=== PATIENT | male | born 1985 | race Caucasian/White ===

== ENCOUNTER 2024-07-23 13:24 | Emergency (ER) | payer BC, SELFPAY ==
[2024-07-23 13:42] VITALS: BP 138/70; PULSE 104; RESP 18; TEMP 36.8; O2SAT 97; BMI 23.0
--- NOTE | 2024-07-23 13:51 | EXP.UTC ---
Discharge Plan Disposition Patient Disposition: Home, Self-Care Condition: Good Prescriptions Prescriptions: New promethazine-DM 6.25-15 mg/5 mL Syrup 5 ml PO Q6H PRN (Reason: Cough) Qty: 240 0RF azithromycin [Zithromax] 250 mg tablet 250 mg PO UD DOSE PK Qty: 6 0RF Rx Instructions: Take two (2) tablets today, then one (1) tablet days #2 thru #5 benzonatate 100 mg capsule 100 mg PO TIDP PRN (Reason: Cough) Qty: 30 0RF methylprednisolone 4 mg Tablets,Dose Pack 4 mg PO DIRECTED 6 Days Qty: 21 0RF Rx Instructions: Take 1 pack as directed for 6 days No Action buspirone 10 mg tablet 10 mg PO DAILY lamotrigine 100 mg tablet 100 mg PO DAILY Patient Comments: TAKE 1 TABLET BY MOUTH TWICE A DAY aripiprazole 2 mg tablet 2 mg PO DAILY clonidine HCl 0.1 mg tablet extended release 12 hr 0.1 mg PO DAILY Patient Comments: TAKE 3 TABLETS BY MOUTH EVERY NIGHT Referrals Follow up/Referrals: Provider,Referral, MD [Primary Care Provider] - See instructions Activity Restrictions/Add. Instructions Additional Instructions/Restrictions: Drink plenty of fluids. Take tylenol or ibuprofen for pain or fever. Take the medications as directed. Follow up with your regular doctor. GO TO THE ER FOR ANY WORSENING SYMPTOMS Clinical Impressions Clinical Impression: Acute bronchitis, Sinusitis Instructions Patient Instructions: Sinusitis, DI for Sinusitis Print Language Print Language: Chinese Discharge ED Provider: Aristeo Lopez [facility] General Stated complaint: congestion, sinus pressure Mode of Arrival: Ambulatory Source of Information: Patient Time Seen by Provider: 07/23/24 13:51 Description of Symptoms (Recalled from Triage Doc. by RN): SINUS INFECTION?, PRESSURE HEENT Symptoms (Recalled from RN notes): Yes Resp Symptoms (Recalled from RN notes): Yes Skin Symptoms (Recalled from RN notes): No MS Symptoms (Recalled from RN notes): No Functional Status (Recalled from RN notes): WNL History of Present Illness Provider Complaint: He states that for the past 2 weeks he has had worsening sinus congestion and a productive cough. He denies any fever/chills. Related Data Home Medications ?Medication ?Instructions ?Recorded ?Confirmed aripiprazole 2 mg tablet 2 mg PO DAILY 07/23/24 07/23/24 buspirone 10 mg tablet 10 mg PO DAILY 07/23/24 07/23/24 clonidine HCl 0.1 mg 0.1 mg PO DAILY 07/23/24 07/23/24 tablet,extended release,12 hr lamotrigine 100 mg tablet 100 mg PO DAILY 07/23/24 07/23/24 Previous Rx's ?Medication ?Instructions ?Recorded azithromycin 250 mg tablet 250 mg PO UD DOSE PK #6 tabs 07/23/24 (Zithromax) benzonatate 100 mg capsule 100 mg PO TIDP PRN Cough #30 caps 07/23/24 methylprednisolone 4 mg tablets in 4 mg PO DIRECTED 6 days #21 tabs 07/23/24 a dose pack promethazine-DM 6.25 mg-15 mg/5 mL 5 ml PO Q6H PRN Cough #240 mL 07/23/24 oral syrup Allergies Allergy/AdvReac Type Severity Reaction Status Date / Time No Known Allergies Allergy Verified 07/23/24 13:44 Worker's Comp Is this a Worker's Comp case?: [facility] Disclaimer: The information contained in this section may have been updated after the patient was seen, as this information can be updated by other users. Medical History (Updated 07/23/24 @ 14:53 by Aristeo Lopez APRN) Depression Anxiety Social History Smoking Status: Never smoker alcohol intake: never current occupational status: employed Travel in the last 8 weeks: None ROS Obtained: Yes All systems reviewed & no additional complaints except as documented Constitutional Constitutional: Reports poor appetite Eyes Eyes: Reports system reviewed and no additional complaints, except as documented ENT Ears, Nose, Mouth, and Throat: Reports as per HPI Cardiovascular Cardiovascular: Reports system reviewed and no additional complaints, except as documented and Denies chest pain Respiratory Respiratory: Denies shortness of breath, Reports chest congestion, Reports cough, Denies stridor and Denies wheezing Gastrointestinal Gastrointestingal: Reports system reviewed and no additional complaints, except as documented; Denies abdominal pain, diarrhea or vomiting Musculoskeletal Musculoskeletal: Reports system reviewed and no additional complaints, except as documented and Denies arthralgias Integumentary/Breasts Skin/Breast: Reports system reviewed and no additional complaints, except as documented and Denies rash Neurologic Neurologic: Denies paresthesias Allergic/Immunologic Allergic/Immunologic: Denies wheezing Physical Exam General General appearance: alert and in no apparent distress Head Head exam: atraumatic, normocephalic and normal inspection Eye Eye exam: Present normal appearance, PERRL and EOMI ENT ENT exam: Present normal exam, normal oropharynx, mucous membranes moist, TM's normal bilaterally and normal external ear exam Neck Neck exam: Present normal inspection, full ROM and trachea midline; Absent meningismus or lymphadenopathy Chest Chest inspection: Present normal inspection and symmetric chest wall rise; Absent tenderness Respiratory Respiratory exam: Present normal lung sounds bilaterally; Absent respiratory distress Cardiovascular Cardiovascular exam: Present regular rate and normal rhythm; Absent JVD Abdominal Exam Abdominal exam: Present soft and normal bowel sounds; Absent distention, tenderness or guarding Extremities Exam Extremities exam: Present normal inspection, full ROM and normal capillary refill; Absent calf tenderness Back Exam Back exam: Present normal inspection; Absent tenderness Neurological Exam Neurological exam: Present alert and oriented X3 Psychiatric Psychiatric exam: Present normal affect and normal mood Skin Skin exam: Present warm, dry, intact and normal color Lymphatic Lymphatic Findings: no adenopathy Medical Decision Making Medical Records Medical records reviewed: No I reviewed the patient's medical records. Screening: Per USPSTF and CDC recommendations, given the prevalence of disease in our region, it is our hospital?s policy to screen for HIV and viral Hepatitis for all patients aged 18 and over and those with ongoing risk factors. Vitaliy Inquiry Pt receiving controlled substance: No Vital Signs: 07/23/24 13:42 Temperature 98.2 F Temperature Source Oral Pulse Rate [Left Radial] 104 H Respiratory Rate 18 Blood Pressure [Left Arm] 138/70 Blood Pressure Mean [Left Arm] 92 02 Sat by Pulse Oximetry 97 Lab Data Lab results reviewed: Yes I reviewed the patient's lab results.
[2024-07-23 14:53] VITALS: BP 138/70; PULSE 104; RESP 18; TEMP 36.8
== END 2024-07-23 14:56 | disposition home or self-care (01) ==
PROVIDERS: Emergency Provider Nurse Practitioner Family
DX: J01.90 Acute sinusitis, unspecified (principal); J20.9 Acute bronchitis, unspecified
CPT/HCPCS: 99213; G0381

== ENCOUNTER 2024-09-02 10:36 | Emergency (ER) | payer OTHER, SELFPAY ==
[2024-09-02 10:37] VITALS: BP 136/67; PULSE 97; RESP 20; TEMP 36.9; O2SAT 99; BMI 23.4
--- NOTE | 2024-09-02 10:56 | XR_ITS ---
FINAL REPORT TECHNIQUE: Right ribs 5 views CLINICAL HISTORY: trauma injured at work COMPARISON: None FINDINGS: RIGHT RIBS: A single view of the chest with 4 views of the ribs were obtained. There is no acute cardiopulmonary process. No pneumothorax is identified. There is mild cortical irregularity of the anterior right seventh rib, and a small nondisplaced fracture cannot be excluded. No other evidence of fracture is present. IMPRESSION: Questionable small nondisplaced fracture of the anterior right seventh rib, otherwise unremarkable. Reviewed, Interpreted and Dictated by Caro Cordoba MD Transcribed by Cadence De Jesus Authenticated and [facility]
[2024-09-02] MEDS: LIDOCAINE 5% TRANSDERMAL PATCH 1 EACH TP (11:00)
--- NOTE | 2024-09-02 11:29 | HMH.EDGENADL ---
Discharge Plan Disposition Patient Disposition: Home, Self-Care Condition: Good Prescriptions Prescriptions: New hydrocodone-acetaminophen 5-325 mg tablet 1 tab PO Q8H PRN (Reason: pain) Qty: 10 0RF methocarbamol 750 mg tablet 750 mg PO Q8H PRN (Reason: pain) Qty: 20 0RF naproxen 500 mg tablet 500 mg PO Q8H PRN (Reason: pain) Qty: 20 0RF No Action buspirone 10 mg tablet 10 mg PO DAILY lamotrigine 100 mg tablet 100 mg PO DAILY Patient Comments: TAKE 1 TABLET BY MOUTH TWICE A DAY aripiprazole 2 mg tablet 2 mg PO DAILY clonidine HCl 0.1 mg tablet extended release 12 hr 0.1 mg PO DAILY Patient Comments: TAKE 3 TABLETS BY MOUTH EVERY NIGHT Referrals Follow up/Referrals: Provider,Referral, MD [Primary Care Provider] - See instructions Activity Restrictions/Add. Instructions Additional Instructions/Restrictions: You were evaluated in the emergency department today. It is possible you have 1/7 rib fracture on the right that is very subtle, but there is nothing really to do for this except pain control and use your incentive spirometer as instructed. Please follow-up very closely with your primary care provider. Use caution when taking narcotic medications, as they can be sedating. Do not drive or operate heavy machinery while taking that medication. You may also take Tylenol every 4-6 hours as needed for pain. Return to the emergency department for new or worsening symptoms. Clinical Impressions Clinical Impression: Right rib fracture Stand Alone Forms Stand Alone Forms: Work/School Release Instructions Patient Instructions: DI for Rib Fracture Print Language Print Language: Albanian Discharge ED Provider: Dominga Nogueira General Adult HPI General Chief complaint: Back Pain/Injury Stated complaint: WC 09/01/24 inj rt ribs Time Seen by Provider: 09/02/24 11:06 Mode of Arrival: Ambulatory Source of Information: Patient Limitations: No Limitations Description of Symptoms (Recalled from ER Triage Doc. 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 ever since patient has noticed wheezing and popping in right side History of Present Illness HPI narrative: This patient is a 39-year-old male who denies significant past medical history presenting to the emergency department for evaluation with concern for right rib injury. 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 He states that he thought maybe it was just bruised, but he woke up this morning with worsened pain. No other concerns noted at this time. No other injuries. Related Data Home Medications ?Medication ?Instructions ?Recorded ?Confirmed aripiprazole 2 mg tablet 2 mg PO DAILY 07/23/24 09/02/24 buspirone 10 mg tablet 10 mg PO DAILY 07/23/24 09/02/24 clonidine HCl 0.1 mg 0.1 mg PO DAILY 07/23/24 09/02/24 tablet,extended release,12 hr lamotrigine 100 mg tablet 100 mg PO DAILY 07/23/24 09/02/24 Previous Rx's ?Medication ?Instructions ?Recorded hydrocodone 5 mg-acetaminophen 325 1 tab PO Q8H PRN pain #10 tabs 09/02/24 mg tablet methocarbamol 750 mg tablet 750 mg PO Q8H PRN pain #20 tabs 09/02/24 naproxen 500 mg tablet 500 mg PO Q8H PRN pain #20 tabs 09/02/24 Allergies Allergy/AdvReac Type Severity Reaction Status Date / Time No Known Allergies Allergy Verified 09/02/24 12:20 [facility] Disclaimer: The information contained in this section may have been updated after the patient was seen, as this information can be updated by other users. Medical History Depression Anxiety Social History Smoking Status: Never smoker alcohol intake: never current occupational status: employed Travel in the last 8 weeks: None Have you lived/traveled outside US in past 30 days?: No Contact w/someone who lives/traveled outside US past 30 days?: No Exposure to someone with infectious disease in past 14 days?: No Do you have a fever (greater than 100.4 F or 38 C)?: No Have you tested positive for COVID-19: No Exposed to someone with COVID-19 in past 14 days?: No Do you have a sore throat?: No Do you have a cough?: No Do you have any weakness?: No Do you have any diarrhea?: No Are you experiencing any unusual bleeding?: No Do you have any muscle aches/pain?: No Do you have any abdominal pain?: No Are you experiencing loss of taste or smell?: No ROS Obtained: Yes All systems reviewed & no additional complaints except as documented Physical Exam General General appearance: alert and in no apparent distress Head Head exam: atraumatic and normocephalic Eye Eye exam: Present normal appearance, PERRL and EOMI ENT ENT exam: Present normal exam, normal oropharynx, mucous membranes moist and normal external ear exam Neck Neck exam: Present normal inspection, full ROM and trachea midline; Absent tenderness Chest Chest inspection: Present symmetric chest wall rise and tenderness (Tenderness to palpation of the right anterolateral lower ribs with no step-offs or deformities. No palpable crepitus) Respiratory Respiratory exam: Present normal lung sounds bilaterally; Absent respiratory distress, wheezes, stridor or accessory muscle use Cardiovascular Cardiovascular exam: Present regular rate and normal rhythm Abdominal Exam Abdominal exam: Present soft; Absent distention, tenderness or guarding Extremities Exam Extremities exam: Present normal inspection, full ROM and normal capillary refill; Absent tenderness or edema Back Exam Back exam: Present normal inspection and full ROM; Absent tenderness Neurological Exam Neurological exam: Present alert, oriented X3, CN II-XII intact and normal gait; Absent motor sensory deficit Psychiatric Psychiatric exam: Present normal affect and normal mood Skin Skin exam: Present warm and dry Medical Decision Making Medical Records Medical records reviewed: Yes I reviewed the patient's medical records. Screening: Per USPSTF and CDC recommendations, given the prevalence of disease in our region, it is our hospital?s policy to screen for HIV and viral Hepatitis for all patients aged 18 and over and those with ongoing risk factors. Vitaliy Inquiry Pt receiving controlled substance: Yes Vitaliy was queried for this patient: Yes Risks and benefits of using a controlled substance: were discussed with pt by me Vital Signs: 09/02/24 10:37 09/02/24 12:37 Temperature 98.5 F 98.2 F Temperature Source Oral Pulse Rate 80 Pulse Rate [Right Radial] 97 H Respiratory Rate 20 20 Blood Pressure 148/70 H Blood Pressure [Right Arm] 136/67 Blood Pressure Mean [Right Arm] 90 02 Sat by Pulse Oximetry 99 Oxygen Delivery Method Room Air Room Air Lab Data Lab results reviewed: Yes I reviewed the patient's lab results. Orders (Tests/Meds): ED MEDICATIONS Discontinued Medications Generic Name Dose Route Start Last Admin Trade Name Josh PRN Reason Stop Dose Admin Acetaminophen 1,000 mg 09/02/24 11:30 09/02/24 12:04 Acetaminophen 500mg Tab PO 09/02/24 11:31 1,000 mg ONCE ONE Administration Ketorolac Tromethamine 30 mg 09/02/24 11:30 09/02/24 12:05 Ketorolac 30mg/Ml Vial IM 09/02/24 11:31 30 mg ONCE ONE Administration Lidocaine 1 each 09/02/24 10:58 09/02/24 11:00 Lidocaine 5% Transdermal Patch TP 09/02/24 10:59 1 each ONCE ONE Administration ORDERS Category Date Time Status XR ribs RT 2V Stat Exams 09/02/24 10:56 Completed Medical Decision Narrative: In summary, this patient is a 39-year-old male presenting to the Emergency Department for evaluation of right rib pain after being smacked in the ribs several times by high-pressure hose yesterday. Differential diagnoses considered include but are not limited to rib fracture, contusion, strain/sprain, pneumothorax. Ruling out the most morbid conditions drove assessment. On exam, the patient is very well-appearing with good lung sounds bilaterally. He does have tenderness to palpation of the right inferior anterolateral ribs with no step-offs or deformities. No respiratory distress, normal vitals on the cardiac telemetry. Workup included x-rays of the right ribs. Patient was given IM Toradol, oral Tylenol, topical Lidoderm patch. I independently interpreted chest x-ray prior to the radiologist read and noted no obvious displaced rib fracture, no pneumothorax. Please see their read for final interpretation. Radiology does note concerns for possible nondisplaced right seventh rib fracture, which correlates with patient's tenderness. His pain is controlled, vitals are reassuring, he is not hypoxic. He is young, healthy, without significant cardiopulmonary issues and has no increased work of breathing. He is able to pull well on incentive spirometry. Given this, I feel that he is appropriate for discharge home with pain medications and instructions for supportive management and close outpatient follow-up. He was given prescriptions for [place], Robaxin, naproxen as well as instructions for supportive management with I-S. Strict return precautions were given as well as instructions for close follow-up with a primary care provider. Critical Care Critical Care Time Critical Care Time: No
--- NOTE | 2024-09-02 11:59 | PC.NURSE ---
ROUNDED ON THE PT. THE PT VOICES THAT HE DOES NOT NEED ANYTHING AT THIS TIME. CALL LIGHT IS WITHIN REACH OF THE PT.
[2024-09-02] MEDS: ACETAMINOPHEN 500MG TAB 1000 MG PO (12:04)
[2024-09-02] MEDS: KETOROLAC 30MG/ML VIAL 30 MG IM (12:05)
--- NOTE | 2024-09-02 12:24 | PC.NURSE ---
provided patient with incentive spirometer
[2024-09-02 12:37] VITALS: BP 148/70; PULSE 80; RESP 20; TEMP 36.8; O2SAT 98
== END 2024-09-02 12:40 | disposition home or self-care (01) ==
PROVIDERS: Emergency Provider Emergency Medicine
DX: S22.31XA Fracture of one rib, right side, initial encounter for closed fracture (principal); R07.81 Pleurodynia; R06.2 Wheezing; W20.8XXA Other cause of strike by thrown, projected or falling object, initial encounter; Y93.89 Activity, other specified; Y92.69 Other specified industrial and construction area as the place of occurrence of the external cause
CPT/HCPCS: 71100; 96372; 99283; J1885

== ENCOUNTER 2024-09-22 21:28 | Outpatient (CLI) | payer BC, SELFPAY ==
[2024-09-22 22:06] LABS: Basophils % 0.3 % (0.1-2.0); Eosinophils # 0.2 K/mm3 (0.0-0.4); Eosinophils % 2.6 % (0.1-12.0); Hematocrit 46.4 % (42.0-52.0); Lymphocytes % 34.8 % (10-50); Mean Corpuscular HGB Conc 32.3 g/dL (31.8-35.4); Mean Corpuscular Hemoglobin 29.9 pg (27.0-31.2); Mean Corpuscular Volume 92.4 fl (80-94); Monocytes # 0.5 K/mm3 (0.1-1.0); Monocytes % 8.8 % (1.7-9.3); Neutrophils # 3.1 K/mm3 (1.8-7.8); Neutrophils % 53.3 % (37.0-80.0); Platelet Count 313 K/mm3 (142-424); Red Blood Count 5.02 M/mm3 (4.60-6.20); Red Cell Distribution Width 12.1 % (11.5-17.5); White Blood Count 5.8 K/mm3 (4.8-10.8)
[2024-09-22 22:54] LABS: Chloride 101 mmol/L (98-107); Potassium 4.6 mmoL/L (3.5-5.1); Sodium 140 mmol/L (136-145)
[2024-09-22 22:56] LABS: Blood Urea Nitrogen 16 mg/dl (9-20); Estimated Glomerular Filt Rate 68 ml/min (>60); GFR (African American) 82 ML/MIN (>60)
[2024-09-22 22:57] LABS: Alanine Aminotransferase 24 U/L (12-78); Albumin/Globulin Ratio 1.9 (1.1-1.8); Alkaline Phosphatase 81 U/L (38-126); Anion Gap 14.6 mEq/L (5-15); Aspartate Amino Transferase 28 U/L (17-59); Bilirubin,Total 0.5 mg/dl (0.2-1.3); Calcium 9.8 mg/dl (8.4-10.2); Carbon Dioxide 29 mmol/L (22.0-30.0); Chol/HDL Ratio 3.4 (1-3.5); Cholesterol 220 mg/dl (140-200); Globulin 2.6 g/dL (1.3-3.2); Glucose 87 mg/dl (74-100); HDL Cholesterol 64 mg/dl (40-60); Total Protein,Serum 7.6 g/dl (6.3-8.2); Triglycerides 105 mg/dl (30-150); VLDL Cholesterol 21 mg/dL (0-40)
[2024-09-22 23:08] LABS: Direct LDL Cholesterol 114.58 mg/dL (100-129)
[2024-09-22 23:14] LABS: 25-OH Vitamin D, Total 56.6 ng/mL (30-100)
[2024-09-22 23:56] LABS: Hemoglobin A1C 4.8 % (4.0-6.0)
[2024-09-24 08:15] LABS: HBsAg Screen Negative (Negative); HCV Ab Non Reactive (Non Reactive); Hep A Ab, IGM Negative (Negative); Hep B Core Ab, IgM Negative (Negative)
== END 2024-09-22 23:59 | disposition home or self-care (01) ==
LOC: LAB.DROPOF 21:29
PROVIDERS: PCP Internal Medicine; Visit Provider Internal Medicine
DX: R53.83 Other fatigue (principal); Z13.1 Encounter for screening for diabetes mellitus
CPT/HCPCS: 80053; 80061; 80074; 82306; 83036; 84443; 85025; 86803

== ENCOUNTER 2024-11-02 08:54 | Outpatient (CLI) | payer OTHER, SELFPAY ==
--- NOTE | 2024-11-02 08:57 | XR_ITS ---
FINAL REPORT CLINICAL HISTORY: pain, trauma anterior mid-lateral pain FINDINGS: 2 views of the left ribs were obtained. There is a questionable left eighth rib fracture laterally where there is subtle irregularity of the cortex. IMPRESSION: Subtle irregularity of the cortex of the left eighth rib. Correlate with site of point tenderness. Reviewed, Interpreted and Dictated by Lamberto Peterson MD Transcribed by Sandy Cuevas Authenticated and [facility]
== END 2024-11-02 23:59 | disposition home or self-care (01) ==
LOC: RAD 08:55
PROVIDERS: PCP Family Medicine; Visit Provider Family Medicine
DX: R07.81 Pleurodynia (principal)
CPT/HCPCS: 71100

== ENCOUNTER 2024-12-31 11:12 | Outpatient (CLI) | payer OTHER, SELFPAY ==
--- OUTSIDE RECORDS SUMMARY | 2024-08-22 17:30 | XMS_ITS ---
Author Organization [facility] Address [address] [place] [address] Care Team Providers Care Production Hand Name Role Phone JAYLAN LINDSAY Unavailable [phone] Migration, Provider Unavailable Unavailable [facility] Encounter Medications Medication SIG (Take, Route, Frequency, Duration) Notes Start Date End Date Status Fluticasone Propionate 50 MCG/ACT 1 spray(s) in each nostril once a day for 30 day(s) 05/24/2021 Active Xhance 93 MCG/INH DIRECTED IN EACH NOSTRIL 2 TIMES A DAY for 30 DAYS *Please review and pick correct strength-formulatio n from [employer] options. If intended option is not shown, discontinue and re-order from Quick Search* 06/23/2021 Active busPIRone HCl 5 MG 1 tab(s) orally 2 times a day for 30 day(s) Active traZODone HCl 50 MG 1 tab(s) orally 2 times a day for 30 day(s) Active Azelastine HCl 137 MCG/SPRAY 2 spray(s) intranasally 2 times a day for 30 day(s) 05/24/2021 Active Minocycline HCl 50 MG 1 cap(s) orally 4 times a day Active Claritin 10 MG 1 tab(s) orally once a day Active Encounters Encounter Location Date Provider Diagnosis [facility] [address] [place] [address] 08/22/2024 Provider Migration Plan Of Treatment No Information Progress Notes * KAYLYN CHAN SDOB:[birth year] (39 yo M)Acc No.[id number]:08/22/2024 Patient: John KAYLYN GANN Provider: John Da Silva :1985 A ge:39 Y S ex:Male Date:08/22/2024 Address: [address], [place], [id number] Subjective: * Chief Complaints: * [facility] . [facility] * Medical History: * Medications: T aking Minocycline HCl 50 MG Capsule 1 cap(s) orally 4 times a day , Taking Claritin 10 MG Tablet 1 tab(s) orally once a day , Taking busPIRone HCl 5 MG Tablet 1 tab(s) orally 2 times a day , Taking traZODone HCl 50 MG Tablet 1 tab(s) orally 2 times a day , Taking Azelastine HCl 137 MCG/SPRAY Solution 2 spray(s) intranasally 2 times a day , Taking Fluticasone Propionate 50 MCG/ACT Suspension 1 spray(s) in each nostril once a day , Taking Xhance 93 MCG/INH SPRAY DIRECTED IN EACH NOSTRIL 2 TIMES A DAY , Notes to Pharmacist: *Please review and pick correct strength-formulation from [facility] options. If intended option is not shown, discontinue and re-order from Quick Search* Objective: * Vitals: Assessment: Plan: * Treatment: * Billing Information: * Visit Code: * Procedure Codes: * Electronic signature of Berta costello Migration on 01/04/2025 at 11:17 AM EDT Sign off status: Pending * Provider: John carlson Rekha Date: 0 08/22/2024 Generated for Danielle acevedo/Patience/iNk on: 0 01/04/2025 11:17 AM EDT
[2025-01-01 02:17] LABS: Chlamydia trachomatis Negative (Negative); Neisseria gonorrhoeae Negative (Negative); Trichomonas vaginalis Negative (Negative)
--- OUTSIDE RECORDS SUMMARY | 2025-01-04 11:18 | XMS_ITS | Patient Health Record ---
Author Organization [facility] Address [address] [place] [address] Care Team Providers Care Residential Lawn Specialist Name Role Phone JAYLAN LINDSAY Unavailable [phone] Migration, Provider Unavailable Unavailable Allergies No Known Allergies Reason For Referral No Information Medications Medication SIG (Take, Route, Frequency, Duration) Notes Start Date End Date Status Fluticasone Propionate 50 MCG/ACT 1 spray(s) in each nostril once a day for 30 day(s) 05/24/2021 Active Xhance 93 MCG/INH DIRECTED IN EACH NOSTRIL 2 TIMES A DAY for 30 DAYS *Please review and pick correct strength-formulatio n from [facility] options. If intended option is not shown, discontinue and re-order from Quick Search* 06/23/2021 Active Minocycline HCl 50 MG 1 cap(s) orally 4 times a day Active Claritin 10 MG 1 tab(s) orally once a day Active busPIRone HCl 5 MG 1 tab(s) orally 2 times a day for 30 day(s) Active traZODone HCl 50 MG 1 tab(s) orally 2 times a day for 30 day(s) Active Azelastine HCl 137 MCG/SPRAY 2 spray(s) intranasally 2 times a day for 30 day(s) 05/24/2021 Active Social History Tobacco Use: Social History Observation Description Date Details (start date - stop date) Never Smoker NA - NA Smoking status: Question Answer Notes Are you a: nonsmoker Additional Findings: Tobacco Non-User Current no n-smoker Problems Problem Type SNOMED Code ICD Code Onset Dates Problem Status W/U Status Risk Notes Problem 845474716 Nasal septal deviation (J34.2) Active confirmed 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 Problem Hypertrophy of nasal turbinates (01154865) Hypertrophy, nasal, turbinate (J34.3) Active confirmed Encounters Encounter Location Date Provider Diagnosis [facility] [address] [place] [address] 08/22/2024 Provider Migration Plan Of Treatment Pending Test Test Name Order Date CT Maxillofacial w/o Contrast 06/23/2021 COVID-19 07/24/2021 [facility] 07/18/2021 Insurance Providers Payer Name Payer Address Payer Phone Subscriber Number Group Number Insured Name Patient Relationship to Insured Coverage Start Date Coverage End Date [employer] [address] [address] [place] [phone] [id number] KAYLYN CHAN Self - patient is the insured Medical (General) History Medical History History ICD Code NASAL CONGESTION NASAL DRAINAGE INABILITY TO SMELL SINUS PROBLEMS DIFFICULTY SWALLOWING Surgical History Surgery Date(Month/Year) NSR/SMRT 2021
--- OUTSIDE RECORDS SUMMARY | 2025-01-04 11:18 | XMS_ITS | Clinical Summary ---
Author Organization [facility] Address [address] [place] [id number] Phone [email or web address] Care Team Providers Care Bindery Operator Name Role Phone Provider, No Primary Care Provider Unavailabl e Allergies No known active allergies Medications levocetirizine (XYZAL) 5 MG tablet Take 5 mg by mouth in the morning. Active naproxen sodium (ALEVE) 220 MG tablet Take 220 mg by mouth every 12 (twelve) hours if needed for mild pain. Active lamoTRIgine (LaMICtal) 100 MG tablet Take 100 mg by mouth in the morning and 100 mg before bedtime. Active busPIRone (BUSPAR) 10 MG tablet Take 10 mg by mouth in the morning and 10 mg before bedtime. Active ARIPiprazole (ABILIFY) 2 MG tablet Take 2 mg by mouth 1 (one) time each day. Active cloNIDine HCl ER 0.1 MG tablet sustained-relea se 12 hour TAKE 3 TABLETS BY MOUTH EVERY NIGHT Active traZODone (DESYREL) 100 MG tablet Take 100 mg by mouth every night. 03/19/2024 Active Active Problems Problem Noted Date Diagnosed Date Allergies 04/18/2023 Anxiety 04/18/2023 Bipolar mood disorder 04/18/2023 History of substance abuse 04/18/2023 PTSD (post-traumatic stress disorder) 04/18/2023 Social History Tobacco Use Types Packs/Day Years Used Date Smoking Tobacco: Former Cigarettes Smokeless Tobacco: Never Tobacco Cessation:Counseling Given: Not Answered Comments:Melinda nicotine pouches Depression Answer Date Recorded PHQ Total Score 0 05/04/2024 Stress Answer Date Recorded Stress in your Life Not on file 05/25/2024 Dealing with Stress 3 05/25/2024 Sex and Gender Information Value Date Recorded Sex Assigned at Not on file Legal Sex Male 3:47 PM CDT Gender Identity Not on file Sexual Orientation Not on file Last Filed Vital Signs Vital Sign Reading Time Taken Comments Blood Pressure 117/75 05/14/2024 6:52 PM EDT Pulse 76 05/14/2024 6:52 PM EDT Temperature 36.3 C (97.3 F) 05/14/2024 6:52 PM EDT Respiratory Rate 18 05/14/2024 6:52 PM EDT Oxygen Saturation 99% 05/14/2024 6:52 PM EDT Inhaled Oxygen Concentration - - Weight 78.9 kg (174 lb) 05/04/2024 11:28 PM EDT Height 182.9 cm (6') 05/04/2024 11:28 PM EDT Body Mass Index 23.6 05/04/2024 11:28 PM EDT Plan of Treatment Health Maintenance Due Date Last Done Comments Dental Cleaning/Exam 1987 Tetanus Diphtheria and Pertussis Immunization (2 - Tdap) 05/13/2002 05/12/2002 Covid-19 Immunization ( season) 2024 04/26/2021, 03/29/2021 Influenza Immunization (Season Ended) 2025 Hepatitis B Immunization Completed 002, 04/09/2001, 02/21/2001 HIB Immunization Aged Out No longer e ligible based on patient's age to complete this topic HPV Immunization Aged Out No longer e ligible based on patient's age to complete this topic Hepatitis A Immunization Aged Out No longer eligible based on patient's age to complete this topic Pneumococcal: Ped (0 to 5 Yrs) and At-Risk Member (6 to 64 Yrs) Aged Out No longer eligible b ased on patient's age to complete this topic Polio Immunization Aged Out No longer eligible based on patient's age to complete this topic Varicella Immunization Aged Out No lo nger eligible based on patient's age to complete this topic Insurance OPT OUT NO COPAY NB OPT OUT NO COPAY NB Care Teams Bindery Operator Relationship Specialty Start Date End Date Provider, [place] [address] PCP - General Bench Shear Operator 04/18/23
== END 2024-12-31 23:59 | disposition home or self-care (01) ==
LOC: LAB.DROPOF 01-04 11:16
PROVIDERS: PCP Family Medicine; Visit Provider Family Medicine
DX: A64 Unspecified sexually transmitted disease (principal)
CPT/HCPCS: 87491; 87591; 87661

== ENCOUNTER 2025-03-08 20:53 | Emergency (ER) | payer OTHER, SELFPAY ==
[2025-03-08 21:45] VITALS: BP 125/79; PULSE 84; RESP 20; TEMP 36.9; O2SAT 100; BMI 24.5
--- OUTSIDE RECORDS SUMMARY | 2025-03-08 21:48 | XMS_ITS | Clinical Summary ---
Author Organization [facility] Address [address] [place] [id number] Phone [email or web address] Care Team Providers Care Horticultural Worker Name Role Phone Provider, No Primary Care [...] Pertussis Immunization (2 - Tdap) 05/13/2002 05/12/2002 HPV Immunization (1 - Male 3-dose series) 2002 Covid-19 Immunization (3 - season) 2024 04/26/2021, 03/29/2021 Influenza Immunization (#1) 2025 Hepatitis B Immunization Completed 002, 04/09/2001, [...] OPT OUT NO COPAY NB Care Teams Horticultural Worker Relationship Specialty Start Date End Date Provider, [place] [address] PCP - General Drug Purchaser 04/18/23
--- OUTSIDE RECORDS SUMMARY | 2025-03-08 21:48 | XMS_ITS | Clinical Summary ---
Author Organization [facility] Address [address] [place] [address] Care Team Providers Care Medical Massage Therapist Name Role Phone Loki Galarza MD Primary Care Provider + Allergies No known active allergies Medications * This document contains information received from the source organization and may not represent a complete record from that organization. levocetirizine (XYZAL) 5 MG tablet Take 1 tablet by mouth Every Evening. Active naproxen sodium (ALEVE) 220 MG tablet Take 1 tablet by mouth 2 (Two) Times a Day As Needed. Active traZODone (DESYREL) 100 MG tabletIndications :Insomnia, unspecified type Take 1 tablet by mouth Every Night. 30 tablet 2 5 Active lamoTRIgine (LaMICtal) 100 MG tabletIndications :Bipolar disorder, in full remission, most recent episode mixed Take 1 tablet by mouth 2 (Two) Times a Day. 120 tablet 2 5 Active ARIPiprazole (ABILIFY) 2 MG tabletIndications :Bipolar disorder, in full remission, most recent episode mixed Take 1 tablet by mouth Daily. 90 tablet 1 5 Active cloNIDine HCl ER 0.1 MG tablet sustained-release 12 hour tabletIndications :ADHD (attention deficit hyperactivity disorder), combined type Take 3 tablets by mouth Every Night. 90 tablet 2 5 Active busPIRone (BUSPAR) 10 MG tablet Take 1 tablet by mouth 2 (Two) Times a Day. 60 tablet 2 5 Active busPIRone (BUSPAR) 10 MG tablet Take 1 tablet by mouth 2 (Two) Times a Day. 60 tablet 2 5 03/03/20 25 Discontinu ed(Reorder ) cloNIDine HCl ER 0.1 MG tablet sustained-release 12 hour tabletIndications :ADHD (attention deficit hyperactivity disorder), combined type Take 3 tablets by mouth Every Night. 90 tablet 2 5 03/03/20 25 Discontinu ed(Reorder ) Active Problems Problem Noted Date Diagnosed Date Bipolar disorder 05/16/2023 Assessment & Plan (07/30/2023 5:06 PM EST): Psychological condition is improving with treatment. Continue current treatment regimen. Referral to psychological counseling. Psychological condition will be reassessed in 3 months. Assessment & Plan (05/16/2023 1:10 PM EDT): Psychological condition is improving with treatment. Continue current treatment regimen. Psychological condition will be reassessed in 3 months. PTSD (post-traumatic stress disorder) 05/16/2023 Assessment & Plan (05/16/2023 1:10 PM EDT): Psychological condition is improving with treatment. Continue current treatment regimen. Psychological condition will be reassessed in 3 months. Cigarette smoker 12/07/2022 Immunizations Immunization Administration Dates Next Due COVID-19 (MODERNA) 1st,2nd,3 rd Dose Monovalent 04/26/2021,03/29/2021 Hep B, Adolescent or Pediatric 05/12/2002,2000,02/21/2001 MMR 05/09/1999 Td (TDVAX) 05/12/2002 Family History Medical History Relation Name Comments Clotting disorder Father Cancer Maternal Aunt colon cancer Cancer Maternal Grandmother facial Diabetes Mother Hypertension Mother Multiple sclerosis Mother Relation Name Status Comments Father Alive Maternal Aunt Maternal Grandmother Mother Alive Social History Tobacco Use Types Packs/Day Years Used Date Smoking Tobacco: Former Cigarettes 1 17 2 2019 Smokeless Tobacco: Current Tobacco Cessation:Ready to Q uit: No; Counseling Given: Yes Comments:Chews nicotine pouches Alcohol Use Standard Drinks/Week Comments No 0 (1 standard drink = 0.6 oz pur e alcohol) PHQ-2 Answer Date Recorded Retired PHQ-9: Brief Depression Severity Measure Score 13 05/16/2023 PHQ-2 Answer Date Recorded Retired PHQ-9: Brief Depression Severity Measure Score 11 09/04/2023 Sex and Gender Information Value Date Recorded Sex Assigned at Not on file Legal Sex Male 11:35 AM EDT Gender Identity Not on file Sexual Orientation Not on file Last Filed Vital Signs Vital Sign Reading Time Taken Comments Blood Pressure 126/74 10/20/2024 3:05 PM EDT Pulse 86 12/17/2023 8:08 AM EDT Temperature 36.5 C (97.7 F) 07/30/2023 4:31 PM EST Respiratory Rate 14 07/30/2023 4:31 PM EST Oxygen Saturation 98% 07/30/2023 4:31 PM EST Inhaled Oxygen Concentration - - Weight 78.5 kg (173 lb) 10/20/2024 3:05 PM EDT Height 182.9 cm (6') 10/20/2024 3:05 PM EDT Body Mass Index 23.46 10/20/2024 3:05 PM EDT Plan of Treatment Health Maintenance Due Date Last Done Comments TDAP/TD VACCINES (2 - Tdap) 05/12/2012 05/12/2002 ANNUAL PHYSICAL 12/07/2022 HEPATITIS C SCREENING 12/07/2022 COVID-19 Vaccine ( - 2023-2 5 season) 2024 04/26/2021, 03/29/2021 INFLUENZA VACCINE 04/21/2025 Pneumococcal Vaccine 0-49 Aged Out No longer eligible based on patient's age to complete this topic Insurance LIAM Cabrera [id number] [facility] Care Teams Medical Massage Therapist Relationship Specialty Start Date End Date Loki Galarza MD [address] [place] [address] LIAM SANTANA [id number] PCP - General Family Medicine 12/31/22
--- NOTE | 2025-03-08 22:04 | CT_ITS ---
PROCEDURE INFORMATION: Exam: CT Abdomen And Pelvis With Contrast Exam date and time: 03/08/2025 10:47 PM Age: 39 years old Clinical indication: Abdominal pain; Additional info: Rlq abdominal pain, possible appendicitis TECHNIQUE: Imaging protocol: Computed tomography of the abdomen and pelvis with contrast. Radiation optimization: All CT scans at this facility use at least one of these dose optimization techniques: automated exposure control; mA and/or kV adjustment per patient size (includes targeted exams where dose is matched to clinical indication); or iterative reconstruction. Contrast material: ISOVUE; Contrast volume: 75 ml; Contrast route: IV; COMPARISON: CR XR RIBS LT 2V 11/02/2024 9:02 AM FINDINGS: Lungs: Lung bases are clear as visualized. Heart: Base of heart is unremarkable as visualized. Liver: Normal. No mass. Gallbladder and biliary ducts: Normal. No calcified stones. No ductal dilation. Pancreas: Normal. No ductal dilation. Spleen: Normal. No splenomegaly. Adrenal glands: Normal. No mass. Kidneys and ureters: Nonobstructive right nephrolithiasis. Stomach and bowel: Moderate colonic stool burden. No intestinal obstruction. Appendix: No evidence of appendicitis. Intraperitoneal space: Unremarkable. No free air. No significant fluid collection. Vasculature: Unremarkable. No abdominal aortic aneurysm. Lymph nodes: Unremarkable. No enlarged lymph nodes. Urinary bladder: Urinary bladder is distended. Reproductive: Unremarkable as visualized. Bones/joints: Unremarkable. No acute fracture. Soft tissues: Unremarkable. IMPRESSION: 1. No appendicitis. 2. Patient appears perhaps moderately constipated. 3. Nonobstructive right nephrolithiasis.
--- NOTE | 2025-03-08 22:06 | HMH.EDGENADL ---
Discharge Plan Disposition Patient Disposition: Home, Self-Care Prescriptions Prescriptions: New cefdinir 300 mg capsule 300 mg PO BID 10 Days Qty: 20 0RF ondansetron 4 mg tablet,disintegrating 4 mg PO Q6H PRN (Reason: nausea and vomiting) Qty: 16 0RF No Action trazodone 100 mg tablet 100 mg PO Patient Comments: TAKE 1 TABLET BY MOUTH EVERY NIGHT metronidazole 500 mg tablet 500 mg PO BID 7 Days Qty: 14 0RF ondansetron 4 mg tablet,disintegrating 4 mg PO Q8H PRN (Reason: nausea and vomiting) Qty: 10 0RF buspirone 10 mg tablet 10 mg PO DAILY lamotrigine 100 mg tablet 100 mg PO DAILY Patient Comments: TAKE 1 TABLET BY MOUTH TWICE A DAY aripiprazole 2 mg tablet 2 mg PO DAILY clonidine HCl 0.1 mg tablet extended release 12 hr 0.1 mg PO DAILY Patient Comments: TAKE 3 TABLETS BY MOUTH EVERY NIGHT Referrals Follow up/Referrals: Rain Chamorro APRN [Primary Care Provider, Family Practice] - See instructions Activity Restrictions/Add. Instructions Additional Instructions/Restrictions: You were found to have a urinary tract infection on today's workup. You are being prescribed an antibiotic. Take this for the full 10 days. You were also found to be constipated. I encourage you to stop taking the Imodium and if you are still unable to have a bowel movement, start taking MiraLAX. Follow-up with your primary care physician. If you develop any new or worsening symptoms, or if you become concerned for your health for any reason, return to the emergency department for evaluation. Clinical Impressions Clinical Impression: Urinary tract infection, Constipation, Abdominal pain Stand Alone Forms Stand Alone Forms: Work/School Release Instructions Patient Instructions: DI for Acute Abdominal Pain Print Language Print Language: Romansh Discharge ED Provider: Flako Batista General Adult HPI General Chief complaint: Abdominal Pain Stated complaint: V/N,Abdominal Pain Time Seen by Provider: 03/08/25 21:58 Mode of Arrival: Ambulatory Source of Information: Patient Description of Symptoms (Recalled from ER Triage Doc. by RN): Pt states he regularly drinks 6-8 beers per day and having diarrhea and vomiting since Saturday Today feels like right lower abd swollen History of Present Illness HPI narrative: Patient is a 39-year-old male with a history of anxiety and depression who presents to the emergency department for complaints of nonbloody diarrhea and vomiting and abdominal pain. Patient states that starting yesterday at 3 AM, he had multiple episodes of nonbloody, loose diarrhea that has persisted into today. He states that he overall feels lightheaded. He has had intermittent episodes of cold sweats and is not sure if he has had a fever. He feels overall weak. He tried to drink water and Gatorade but has had vomiting. He describes today having right lower quadrant abdominal pain describing it as feeling swollen. He did start taking Imodium yesterday and states that the diarrhea has stopped. He denies any surgical history on his abdomen. He states that sometimes it hurts in his abdomen to pee but denies any bloody urine. Related Data Home Medications ?Medication ?Instructions ?Recorded ?Confirmed aripiprazole 2 mg tablet 2 mg PO DAILY 07/23/24 03/08/25 buspirone 10 mg tablet 10 mg PO DAILY 07/23/24 03/08/25 clonidine HCl 0.1 mg 0.1 mg PO DAILY 07/23/24 03/08/25 tablet,extended release,12 hr lamotrigine 100 mg tablet 100 mg PO DAILY 07/23/24 03/08/25 trazodone 100 mg tablet 100 mg PO 12/31/24 03/08/25 Previous Rx's ?Medication ?Instructions ?Recorded metronidazole 500 mg tablet 500 mg PO BID 7 days #14 tabs 12/31/24 cefdinir 300 mg capsule 300 mg PO BID 10 days #20 caps 03/08/25 ondansetron 4 mg disintegrating 4 mg PO Q6H PRN nausea and 03/08/25 tablet vomiting #16 tabs ondansetron 4 mg disintegrating 4 mg PO Q8H PRN nausea and 03/08/25 tablet vomiting #10 tabs Allergies Allergy/AdvReac Type Severity Reaction Status Date / Time No Known Allergies Allergy Verified 03/08/25 10:59 [facility] Disclaimer: The information contained in this section may have been updated after the patient was seen, as this information can be updated by other users. Medical History Pain in rib Fracture of one rib, right side, subsequent encounter for fracture with routine healing Right rib fracture Depression Anxiety Surgical History History of nasal septoplasty Social History Smoking Status: Current every day smoker alcohol intake: never current occupational status: employed Travel in the last 8 weeks?: None Have you lived/traveled outside [place] in past 30 days?: No Contact w/someone who lives/traveled outside [place] past 30 days?: No Exposure to someone with infectious disease in past 14 days?: No Do you have a fever (greater than 100.4 F or 38 C)?: No Have you tested positive for COVID-19?: No Exposed to someone with COVID-19 in past 14 days?: No Do you have a sore throat?: No Do you have a cough?: No Do you have any weakness?: No Do you have any diarrhea?: No Are you experiencing any unusual bleeding?: No Do you have any muscle aches/pain?: No Do you have any abdominal pain?: No Are you experiencing loss of taste or smell?: No ROS Obtained: Yes Systems reviewed as appropriate & no additional complaints except as documented Physical Exam General General appearance: alert and in no apparent distress Head Head exam: atraumatic Eye Eye exam: Present normal appearance ENT ENT exam: Present normal external ear exam Neck Neck exam: Present full ROM Chest Chest inspection: Present symmetric chest wall rise Respiratory Respiratory exam: Present normal lung sounds bilaterally; Absent respiratory distress, wheezes or stridor Cardiovascular Cardiovascular exam: Present regular rate and normal rhythm Abdominal Exam Abdominal exam: Present soft, tenderness (RLQ and epigastric with guarding), guarding, rebound and tenderness at McBurney's Point; Absent rigidity, obturator sign or heel tap sign exam: Present deferred Extremities Exam Extremities exam: Present normal inspection Back Exam Back exam: Present normal inspection Neurological Exam Neurological exam: Present alert and oriented X3 Psychiatric Psychiatric exam: Present normal affect Skin Skin exam: Present warm and dry Medical Decision Making Medical Records Screening: Per USPSTF and CDC recommendations, given the prevalence of disease in our region, it is our hospital?s policy to screen for HIV and viral Hepatitis for all patients aged 18 and over and those with ongoing risk factors. Vitaliy Inquiry Pt receiving controlled substance: No Vital Signs: 03/08/25 21:45 03/08/25 22:15 03/08/25 22:30 Temperature 98.4 F Temperature Source Oral Pulse Rate 79 85 Pulse Rate [Right Radial] 84 Respiratory Rate 20 Blood Pressure 115/66 105/65 L Blood Pressure [Right Arm] 125/79 Blood Pressure Mean [Right Arm] 94 Blood Pressure Source Blood Pressure Source [Right Arm] Automatic Cuff Blood Pressure Position Blood Pressure Position [Right Arm] Sitting 02 Sat by Pulse Oximetry 100 98 98 Oxygen Delivery Method Room Air 03/08/25 23:00 03/08/25 23:55 Temperature 98.0 F Temperature Source Oral Pulse Rate 66 77 Pulse Rate [Right Radial] Respiratory Rate 20 Blood Pressure 118/74 110/60 Blood Pressure [Right Arm] Blood Pressure Mean [Right Arm] Blood Pressure Source Automatic Cuff Blood Pressure Source [Right Arm] Blood Pressure Position Sitting Blood Pressure Position [Right Arm] 02 Sat by Pulse Oximetry 100 Oxygen Delivery Method Room Air Lab Data Lab Results 03/08/25 22:15: WBC 5.6, RBC 4.68, Hgb 14.0 L, Hct 42.3, MCV 90.4, MCH 29.9, MCHC 33.1, RDW 12.0, Plt Count 231, MPV 8.6, Neut % (Auto) 52.4, Lymph % (Auto) 27.1, Crosby % (Auto) 14.4 H, Eos % (Auto) 5.5, Baso % (Auto) 0.4, Neut # (Auto) 3.0, Lymph # (Auto) 1.5, Crosby # (Auto) 0.8, Eos # (Auto) 0.3, Baso # (Auto) 0.0, VBG pH 7.36, VBG pCO2 48.9, VBG pO2 49.9 H, VBG HCO3 27.1, VBG Total CO2 28.6 H, VBG O2 Saturation 85.2 H, VBG Base Excess 1.7, VBG Lactic Acid 1.8, Sodium 138, Potassium 3.9, Chloride 102, Carbon Dioxide 29, Anion Gap 10.9, BUN 13, Creatinine 0.90, Estimated Creat Clear 130, Estimated GFR 95, Est GFR ( Amer) 115, Glucose 109 H, Calcium 9.0, Total Bilirubin 0.3, AST 38, ALT 32, Alkaline Phosphatase 81, C-Reactive Protein 12.1 H, Total Protein 7.2, Albumin 4.3, Globulin 2.9, Albumin/Globulin Ratio 1.5, Lipase 44, HIV Ag/Ab Combo Qual Negative 03/08/25 22:55: Urine Color Yellow, Urine Appearance Clear, Urine pH 6.0, Ur Specific [place] >= 1.030, Urine Protein Trace, Urine Glucose (UA) Negative, Urine Ketones Negative, Urine Blood 3+ A, Urine Nitrate Negative, Urine Bilirubin 1+ A, Urine Urobilinogen 0.2, Ur Leukocyte Esterase 1+ A, Urine RBC 5-10, Urine WBC 10-20, Ur Squamous Epith Cells 5-10, Urine Bacteria 2+ 03/08/25 22:15 03/08/25 22:15 Orders (Tests/Meds): ED MEDICATIONS Discontinued Medications Generic Name Dose Route Start Last Admin Trade Name Freq PRN Reason Stop Dose Admin Cefdinir 300 mg 03/08/25 23:42 03/08/25 23:50 Cefdinir 300mg Capsule PO 03/08/25 23:43 300 mg ONCE ONE Administration Lactated Ringer's 1,000 mls @ 999 mls/hr 03/08/25 22:04 03/08/25 23:57 Lactated Ringer's 1000 Ml Bag IV 03/08/25 23:04 Infused .Q1H1M ONE Infusion Iopamidol 75 ml 03/08/25 22:50 03/08/25 22:51 Iopamidol-370 (76%);100ml Bottle IV 03/08/25 22:51 75 ml ONCE ONE Administration Morphine Sulfate 4 mg 03/08/25 22:04 03/08/25 22:22 Morphine 4mg/Ml Syringe IV 03/08/25 22:05 4 mg ONCE ONE Administration Ondansetron HCl 4 mg 03/08/25 22:04 03/08/25 22:22 Ondansetron 4mg/2ml Vial IV 03/08/25 22:05 4 mg ONCE ONE Administration Sodium Chloride 10 ml 03/08/25 22:50 03/08/25 22:51 Sodium Chloride 0.9% 10ml Syr (Rad Only) IV 04/07/25 22:49 10 ml NEEDED PRN Administration Maintain IV Site ORDERS Category Date Time Status CT abdomen pelvis w con Stat Cat Scan 03/08/25 22:04 Completed CBC w/Auto Diff [Complete Blood Count Auto Diff] Stat Lab 03/08/25 22:15 Completed CMP [Comprehensive Metabolic Panel] Stat Lab 03/08/25 22:15 Completed CRP [C-Reactive Protein] Stat Lab 03/08/25 22:15 Completed HIV Combo Routine Lab 03/08/25 22:15 Completed Lipase Stat Lab 03/08/25 22:15 Completed UA [Urinalysis and Microscopic] Stat Lab 03/08/25 22:55 Completed Urine Culture Stat Micro 03/08/25 22:55 Received VBG [Venous Blood Gas] Stat RT 03/08/25 22:15 Completed Medical Decision Narrative: Patient is a 39-year-old male with a history of anxiety and depression who presents to the emergency department for complaints of nonbloody diarrhea and vomiting and abdominal pain. Patient states that starting yesterday at 3 AM, he had multiple episodes of nonbloody, loose diarrhea that has persisted into today. He states that he overall feels lightheaded. He has had intermittent episodes of cold sweats and is not sure if he has had a fever. He feels overall weak. He tried to drink water and Gatorade but has had vomiting. He describes today having right lower quadrant abdominal pain describing it as feeling swollen. He denies any surgical history on his abdomen. He states that sometimes it hurts in his abdomen to pee but denies any bloody urine. On arrival, patient is normotensive, heart rate within normal is, afebrile, breathing comfortably on room air with oxygen saturation 100% SpO2. Physical exam, stated above, revealed an uncomfortable appearing male in no respiratory distress. Cardiopulmonary exam is normal. He has tenderness in the right lower quadrant with mild amount of guarding but no peritonitis. He does have some suprapubic tenderness as well. Abdomen does not appear distended. Differential diagnosis includes, but is not limited to: Appendicitis, diverticulitis, colitis, gastroenteritis, mesenteric adenitis, urinary tract infection, among others. The most morbid conditions were considered and workup was based on these. Workup in the emergency department included: CT abdomen pelvis with IV contrast, VBG with lactate, CMP, CBC with differential, CRP, lipase, urinalysis. Patient was treated with 1 L lactated ringer, 4 g of IV morphine and 4 mg of IV Zofran. CT imaging was interpreted by me personally. No evidence of appendicitis. No ureterolithiasis or hydronephrosis. Patient does have moderate amount of stool within the colon suggestive of constipation but no evidence of bowel obstruction. See final radiology report for details. Patient's laboratory workup showed no leukocytosis, lactate normal at 1.8 and pH normal at 7.36, CMP unremarkable nonactionable with normal electrolytes and no BRAYAN. Glucose of 109. CRP mildly elevated 12.1. Liver enzymes and bili Tyree within normal limits. Urinalysis showed 3+ blood with 1+ leukocyte Estrace as well as 10-20 white blood cells and 5-10 red blood cells and 2+ bacteria. Given the location and patient's urinary symptoms, felt that this likely represents urinary tract infection and would benefit from antibiotics. Patient was given a dose of 300 mg of cefdinir here in the emergency department. Patient has not had any recurrence of his vomiting since he has been in the emergency department. Patient was encouraged to stop taking the Imodium as that is likely causing constipation at this time. He was encouraged to start taking MiraLAX if he has not had a bowel movement over the next day or 2. He was also encouraged to follow-up with his primary care doctor and was given return precautions. Patient is being sent with a course of cefdinir for his urinary tract infection as well as Zofran for nausea and vomiting. All questions were answered. He demonstrated understanding and was in agreement this plan. He was then discharged from the emergency department in stable condition. Critical Care Critical Care Time Critical Care Time: No
[2025-03-08 22:15] VITALS: BP 115/66; PULSE 79; O2SAT 98
[2025-03-08] MEDS: LACTATED RINGERS 1000ML 1,000 ML 999 ML IV (22:21)
[2025-03-08] MEDS: ONDANSETRON 4MG/2ML VIAL 4 MG IV (22:22)
[2025-03-08] MEDS: MORPHINE 4MG/ML SYRINGE 4 MG IV (22:22)
[2025-03-08 22:24] LABS: Hematocrit 42.3 % (42.0-52.0); Hemoglobin 14.0 g/dL (14.1-18.0); Immature Granulocytes % 0.2 %; Mean Corpuscular HGB Conc 33.1 g/dL (31.8-35.4); Mean Corpuscular Hemoglobin 29.9 pg (27.0-31.2); Mean Corpuscular Volume 90.4 fl (80-94); Nucleated Red Blood Cells % 0 %; Platelet Count 231 K/mm3 (142-424); Red Blood Count 4.68 M/mm3 (4.60-6.20); Red Cell Distribution Width-SD 39.9 fL; White Blood Count 5.6 K/mm3 (4.8-10.8)
[2025-03-08 22:26] LABS: Lactate Venous 1.8 mmol/L (0.4-2.0); VBG HCO3 27.1 mmol/L (23-30); VBG PCO2 48.9 mmol/L (35-51); VBG PH 7.36 mmol/L (7.31-7.41); VBG PO2 49.9 mmol/L (28-40)
[2025-03-08 22:28] LABS: Albumin Level 4.3 g/dl (3.5-5.0); Chloride 102 mmol/L (98-107); Potassium 3.9 mmoL/L (3.5-5.1); Sodium 138 mmol/L (136-145)
[2025-03-08 22:30] VITALS: BP 105/65; PULSE 85; O2SAT 98
[2025-03-08 22:30] LABS: Alanine Aminotransferase 32 U/L (12-78); Aspartate Amino Transferase 38 U/L (17-59); Blood Urea Nitrogen 13 mg/dl (9-20); Creatinine Clearance Estimated 130 mL/min (50-200); Creatinine,Serum 0.90 mg/dl (0.66-1.25); Estimated Glomerular Filt Rate 95 ml/min (>60); GFR (African American) 115 ML/MIN (>60)
[2025-03-08 22:31] LABS: Albumin/Globulin Ratio 1.5 (1.1-1.8); Alkaline Phosphatase 81 U/L (38-126); Anion Gap 10.9 mEq/L (5-15); Bilirubin,Total 0.3 mg/dl (0.2-1.3); Calcium 9.0 mg/dl (8.4-10.2); Carbon Dioxide 29 mmol/L (22.0-30.0); Globulin 2.9 g/dL (1.3-3.2); Glucose 109 mg/dl (74-100); Lipase 44 U/L (23-300); Total Protein,Serum 7.2 g/dl (6.3-8.2)
[2025-03-08 22:36] LABS: C-Reactive Protein 12.1 mg/L (0-4)
[2025-03-08] MEDS: IOPAMIDOL-370 (76%);100ML BOTTLE 75 ML IV (22:51)
[2025-03-08] MEDS: SODIUM CHLORIDE 0.9% 10ML SYR (RAD ONLY) 10 ML IV (22:51)
--- NOTE | 2025-03-08 22:56 | PC.NURSE ---
urine collected and sent to lab
[2025-03-08 22:59] LABS: Microscopic, Urine URINE MICROSCOPIC (MICROSCOPIC)
[2025-03-08 23:00] VITALS: BP 118/74; PULSE 66; O2SAT 100
[2025-03-08 23:01] LABS: Color,Urine YELLOW (Yellow); Glucose,Urine (UA) Negative (Negative); Ketones,Urine Negative (Negative); Leukocyte Esterase,Urine 1+ (Negative); PH,Urine 6.0 (5.0-8.5); Protein,Urine TRACE (Negative); Specific Gravity, Urine >= 1.030 (1.005-1.030); Urobilinogen,Urine 0.2 EU/dl (0.2)
[2025-03-08 23:08] LABS: Bilirubin,Urine 1+ (Negative)
[2025-03-08 23:33] LABS: Bacteria,Urine 2+ /lpf
[2025-03-08] MEDS: CEFDINIR 300MG CAPSULE 300 MG PO (23:50)
[2025-03-08 23:55] VITALS: BP 110/60; PULSE 77; RESP 20; TEMP 36.7; O2SAT 97
== END 2025-03-08 23:58 | disposition home or self-care (01) ==
PROVIDERS: Emergency Provider Student in an Organized Health Care Education/Training Program; PCP Family Medicine
DX: R10.31 Right lower quadrant pain (principal); R10.826 Epigastric rebound abdominal tenderness; N39.0 Urinary tract infection, site not specified; R11.2 Nausea with vomiting, unspecified; K59.00 Constipation, unspecified; F17.210 Nicotine dependence, cigarettes, uncomplicated
CPT/HCPCS: 74177; 80053; 81001; 82803; 83690; 85025; 86140; 87086; 87389; 96361; 96374; 96375; 99284; 99285; J2270; J2405; J7120; Q9967